=== PATIENT | female | born 1990 | race Caucasian/White ===

== ENCOUNTER 2024-04-13 15:25 | Day surgery (SDC) | payer OTHER ==
[2024-04-13 15:57] VITALS: BMI 29.7
[2024-04-13 17:24] LABS: ALT (SGPT) 11 U/L (8-55); AST (SGOT) 19 U/L (5-34); Albumin 2.7 g/dL (3.5-5.0); Alkaline Phosphatase 96 U/L (40-110); Anion Gap 12 mmol/L (10-20); BUN (Urea Nitrogen) 5 mg/dL (7.0-18.7); Bilirubin, Total 0.2 mg/dL (0.2-1.2); Calc. Creatinine Clearance 192 mL/min (70-130); Carbon Dioxide 20 mmol/L (22-29); Chloride 108 mmol/L (98-107); Estimated GFR 125; Globulin 3.6 g/dL (2.4-3.5); Glucose 98 mg/dL (70-105); Potassium 3.5 mmol/L (3.5-5.1); Protein, Total 6.3 g/dL (6.0-8.3); Sodium 136 mmol/L (136-145)
[2024-04-13 17:28] LABS: #Basophils 0.02 10x3/uL (0.0-0.2); #Eosinophils 0.09 10x3/uL (0.0-0.5); #Monocytes 0.68 10x3/uL (0.0-1.1); #Neutrophils 6.82 10x3/uL (1.5-8.4); %Basophils 0.2 % (0.0-2.0); %Eosinophils 0.9 % (0.0-6.0); %Lymphocytes 18.6 % (18.0-47.0); %Monocytes 7.2 % (0.0-10.0); %Neutrophils 71.8 % (40.0-75.0); Hematocrit 34.2 % (34.9-44.5); Hemoglobin 11.3 g/dL (12.0-15.5); Mean Corpuscular Hemoglobin 30.3 pg (27.0-33.0); Mean Corpuscular Volume 91.7 fL (81.6-98.3); Mean Platelet Volume 9.5 fL (7.4-10.4); Platelet Count 249 10x3/uL (150-450); Red Blood Cell (RBC) Count 3.73 10x6/uL (3.90-5.03); White Blood Cell (WBC) Count 9.5 10x3/uL (3.5-10.5)
[2024-04-13 18:08] LABS: Creatinine, Urine 22.24 mg/dL (47-110); Protein, Urine Random Quant Less than 10 mg/dL (1-14)
[2024-04-13 18:11] LABS: Bilirubin Neg (Negative); Blood, Urine Negative (Negative); Clarity Clear (Clear); Glucose, Urine (Dipstick) Normal (Negative); Ketone, Urine Negative (Negative); Leukocyte Negative (Negative); Nitrite Negative (Negative); Protein, Urine (Dipstick) Negative (Neg-Trace); Specific Gravity, Urine 1.005 (1.005-1.030); Urobilinogen Normal mg/dL (Less than 2)
[2024-04-13 19:14] LABS: Bacteria/HPF Rare-Few HPF (None Seen); CAUTI Indications for Culture Pregnancy; RBC/HPF None Seen HPF (0-3); Squamous Epithelial 0-3 HPF (0-3); WBC/HPF None Seen HPF (0-3)
[2024-04-13 19:16] LABS: Urine Culture Reflex No No; Urine Culture Reflex Yes Yes
== END 2024-04-13 18:30 | disposition home or self-care (01) ==
LOC: CSHLD/OP 15:25
PROVIDERS: ATTEND Emergency Medicine
DX: O99.891 Other specified diseases and conditions complicating pregnancy (principal); R03.0 Elevated blood-pressure reading, without diagnosis of hypertension; R00.0 Tachycardia, unspecified; Z3A.31 31 weeks gestation of pregnancy
CPT/HCPCS: 80053; 81001; 82570; 84156; 85025; 87086

== ENCOUNTER 2024-06-08 15:47 | Inpatient (IN) | payer OTHER ==
[2024-06-08 16:42] VITALS: BMI 29.9
[2024-06-08] MEDS ORDERED: hydrALAZINE 20 MG/ML VIAL SLOW IVP PRN (17:10)
[2024-06-08 18:34] LABS: ALT (SGPT) 13 U/L (8-55); AST (SGOT) 18 U/L (5-34); Albumin 2.9 g/dL (3.5-5.0); Alkaline Phosphatase 219 U/L (40-110); Anion Gap 14 mmol/L (10-20); BUN (Urea Nitrogen) 5 mg/dL (7.0-18.7); Bilirubin, Total 0.4 mg/dL (0.2-1.2); Calc. Creatinine Clearance 168 mL/min (70-130); Calcium 9.8 mg/dL (7.8-10.44); Carbon Dioxide 20 mmol/L (22-29); Chloride 107 mmol/L (98-107); Estimated GFR 120; Globulin 3.8 g/dL (2.4-3.5); Glucose 123 mg/dL (70-105); Potassium 3.6 mmol/L (3.5-5.1); Protein, Total 6.7 g/dL (6.0-8.3); Sodium 137 mmol/L (136-145)
[2024-06-08 18:54] LABS: #Basophils 0.04 10x3/uL (0.0-0.2); #Eosinophils 0.06 10x3/uL (0.0-0.5); #Monocytes 0.57 10x3/uL (0.0-1.1); #Neutrophils 8.15 10x3/uL (1.5-8.4); %Basophils 0.4 % (0.0-2.0); %Eosinophils 0.6 % (0.0-6.0); %Lymphocytes 17.9 % (18.0-47.0); %Monocytes 5.2 % (0.0-10.0); %Neutrophils 74.8 % (40.0-75.0); Hemoglobin 13.4 g/dL (12.0-15.5); Mean Corpuscular HGB CONC 33.5 g/dL (32.0-36.0); Mean Corpuscular Hemoglobin 30.2 pg (27.0-33.0); Mean Corpuscular Volume 90.3 fL (81.6-98.3); Mean Platelet Volume 10.2 fL (7.4-10.4); Platelet Count 229 10x3/uL (150-450); RBC Distribution Width 12.2 % (11.5-14.5); Red Blood Cell (RBC) Count 4.43 10x6/uL (3.90-5.03); White Blood Cell (WBC) Count 10.9 10x3/uL (3.5-10.5)
[2024-06-08] MEDS ORDERED: Lidocaine 1% (PF) 30 ML VIAL SC PRN (20:18)
[2024-06-08] MEDS ORDERED: Docusate 100 MG CAP PO PRN (20:18)
[2024-06-08] MEDS ORDERED: Diphenoxylate HCl/Atropine Tablet PO PRN ×2 (20:18)
[2024-06-08] MEDS ORDERED: Carboprost 250 MCG/ML AMP IM PRN (20:18)
[2024-06-08] MEDS ORDERED: Misoprostol 200 MCG TAB PR PRN (20:18)
[2024-06-08] MEDS ORDERED: Acetaminophen 500 MG TAB PO PRN (20:18)
[2024-06-08] MEDS ORDERED: Promethazine HCl 25 MG/ML VIAL IM PRN (20:18)
[2024-06-08] MEDS ORDERED: Ondansetron PF 4 MG/2 ML Vial IVP PRN (20:18)
[2024-06-08] MEDS ORDERED: Oxytocin 30 units/NS 500 ML 500 ML IV SCH (20:30)
[2024-06-08 20:57] LABS: Fetal Membranes Rupture No Membranes Rupture (No Rupture)
[2024-06-08 23:20] LABS: Hematocrit 39.5 % (34.9-44.5); Hemoglobin 13.2 g/dL (12.0-15.5); Mean Corpuscular HGB CONC 33.4 g/dL (32.0-36.0); Mean Corpuscular Hemoglobin 30.6 pg (27.0-33.0); Mean Corpuscular Volume 91.4 fL (81.6-98.3); Mean Platelet Volume 10.1 fL (7.4-10.4); Platelet Count 229 10x3/uL (150-450); RBC Distribution Width 12.2 % (11.5-14.5); Red Blood Cell (RBC) Count 4.32 10x6/uL (3.90-5.03); White Blood Cell (WBC) Count 10.9 10x3/uL (3.5-10.5)
[2024-06-08] MEDS: Misoprostol 100 MCG TAB VAG SCH (23:50)
[2024-06-09 00:56] LABS: HIV (1/2) Antibody/Antigen Non-Reactive (NonReactive); HIV 1/2 INDEX 0.15 S/CO (<1.00); Hep B Surf Ag - L&D Non-Reactive S/CO (NonReactive); Syphilis Antibody Nonreactive (Nonreactive); Syphilis Antibody Index 0.05 S/CO (<1.00 Non-Reactive)
[2024-06-09] MEDS: Misoprostol 100 MCG TAB VAG SCH ×2 (03:07→06:28)
[2024-06-09] MEDS: Lactated Ringer's 1,000 ML IV SCH (07:18)
[2024-06-10] MEDS ORDERED: ePHEDrine Sulfate 50 MG/10 ML VIAL SLOW IVP PRN (04:30)
[2024-06-10] MEDS ORDERED: Naloxone HCl 0.4 mg/ml Vial IVP PRN ×2 (04:30)
[2024-06-10] MEDS ORDERED: Lactated Ringer's 500 ML IV PRN (04:30)
[2024-06-10] MEDS ORDERED: diphenhydrAMINE 50 MG/ML VIAL IVP PRN (04:30)
[2024-06-10] MEDS ORDERED: Communication Order-Pharmacy FS SCH (04:30)
[2024-06-10] MEDS ORDERED: Promethazine HCl 25 MG/ML VIAL IM PRN ×2 (04:30→16:52)
[2024-06-10] MEDS ORDERED: Ondansetron PF 4 MG/2 ML Vial IVP PRN ×2 (04:30→16:52)
[2024-06-10] MEDS ORDERED: Acetaminophen 325 MG TAB PO PRN (04:30)
[2024-06-10] MEDS ORDERED: Moisturizing Cream (Eucerin) 113 GM JAR TOP PRN (04:30)
[2024-06-10] MEDS: Misoprostol 100 MCG TAB ONE (08:33)
[2024-06-10] MEDS: fentaNYL/Ropivacaine Epidural 100 ML ONE (08:33)
[2024-06-10] MEDS ORDERED: diphenhydrAMINE 25 MG CAP PO PRN (16:52)
[2024-06-10] MEDS ORDERED: Benzocaine-Menthol 82.5 ML CAN TOP PRN (16:52)
[2024-06-10] MEDS ORDERED: Milk Of Magnesia 30 ML UDCUP PO PRN (16:52)
[2024-06-10] MEDS ORDERED: Lanolin Ointment 7 GM TUBE TOP PRN (16:52)
[2024-06-10] MEDS ORDERED: Bisacodyl 10 MG SUPP PR PRN (16:52)
[2024-06-10] MEDS ORDERED: hydrALAZINE 20 MG/ML VIAL SLOW IVP PRN (16:52)
[2024-06-10] MEDS ORDERED: Oxytocin 30 units/NS 500 ML 500 ML IV SCH (17:00)
[2024-06-10] MEDS: Misoprostol 200 MCG TAB VAG PRN (17:07)
[2024-06-10] MEDS: Tranexamic Acid 1,000 MG/10 ML VIAL IVP PRN (17:07)
[2024-06-10] MEDS: Methylergonovine 0.2 MG/ML VIAL IM PRN (17:07)
[2024-06-10] MEDS: fentaNYL 2 mcg/Ropivacaine 0.2% Epidural 100 ML CADD EPIDURAL SCH (17:11)
[2024-06-10] MEDS: Ampicillin/Sulbactam 3 GM in Sodium Chloride 0.9% 100 ML IVPB SCH (18:19)
[2024-06-10] MEDS: Ibuprofen 800 MG TAB PO SCH (22:50)
[2024-06-10] MEDS: Docusate 100 MG CAP PO SCH (22:50)
[2024-06-11 05:33] VITALS: TEMP 98.1
[2024-06-11] MEDS: Boostrix 0.5 ML (Tdap) VIAL (>/=7 yrs of age) IM ONE (08:01)
[2024-06-11] MEDS: Tranexamic Acid 1,000 MG/10 ML VIAL ONE (08:02)
[2024-06-11] MEDS: Methylergonovine 0.2 MG/ML VIAL ONE (08:02)
[2024-06-11] MEDS: Ferrous Sulfate 325 MG TAB PO SCH (08:02)
[2024-06-11] MEDS: Prenatal Vitamin 1 TAB PO SCH (08:34)
[2024-06-11 11:46] VITALS: BP 96/51
== END 2024-06-11 19:30 | disposition home or self-care (01) | DRG 807 ==
LOC: CSHLD/OP 15:47 → CSHLD 21:50 → CSHPED 06-10 20:50
PROVIDERS: ADMIT Student in an Organized Health Care Education/Training Program; ATTEND Student in an Organized Health Care Education/Training Program
PROC: 10E0XZZ Delivery of Products of Conception, External Approach (ICD-10-PCS; principal; 2024-06-10)
PROC: 0KQM0ZZ Repair Perineum Muscle, Open Approach (ICD-10-PCS; 2024-06-10)
PROC: 3E033VJ Introduction of Other Hormone into Peripheral Vein, Percutaneous Approach (ICD-10-PCS; 2024-06-10)
DX: O41.03X0 Oligohydramnios, third trimester, not applicable or unspecified (principal); Z37.0 Single live birth; Z3A.38 38 weeks gestation of pregnancy; O62.2 Other uterine inertia; R03.0 Elevated blood-pressure reading, without diagnosis of hypertension
CPT/HCPCS: 36415; 51702; 76819; 80053; 82570; 84112; 84156; 85025; 86780; 86850; 86900; 86901; 87340; 87389; 99285; J0295; J2210